=== PATIENT | male | born 1985 | race African-American/Black ===

== ENCOUNTER 2019-04-07 00:01 | Emergency (ER) | payer MEDICAID, OTHER ==
[~2019-04-07] VITALS: Ht 185.4 cm; Wt 95.0 kg
[2019-04-07] MEDS ORDERED: SODIUM CHLORIDE 0.9% 1,000 ML IV ONE (01:17)
[2019-04-07] MEDS ORDERED: ONDANSETRON HCL 4MG/2ML INJ IV STA (01:17)
[2019-04-07] MEDS ORDERED: LORAZEPAM 2MG/ML CPJ IV STA (01:17)
[2019-04-07 02:53] LABS: *AMPHETAMINES SCREEN URINE PRESUMTIVE POSITIVE (NEGATIVE); *BARBITURATES SCREEN URINE NEGATIVE (NEGATIVE); *BENZODIAZEPINES SCREEN URINE NEGATIVE (NEGATIVE); *COCAINE SCREEN URINE PRESUMTIVE POSITIVE (NEGATIVE)
[2019-04-07 02:54] LABS: CANNABINOID URINE SCREEN NEGATIVE (NEGATIVE); METHADONE URINE SCREEN NEGATIVE (NEGATIVE); OPIATES URINE SCREEN PRESUMTIVE POSITIVE (NEGATIVE); PHENCYCLIDINE URINE SCREEN NEGATIVE (NEGATIVE)
[2019-04-07 04:02] LABS: CHLORIDE 106 mEq/L (98-107)
[2019-04-07 04:03] LABS: BASOPHILS % 0.2 % (0.0-2.0); EOSINOPHILS % 0.1 % (0.0-5.0); HEMATOCRIT. 47.7 % (42.0-52.0); HEMOGLOBIN. 15.8 g/dL (14.0-18.0); LYMPHOCYTES % 8.1 % (20.0-50.0); MEAN CORPUSCULAR HEMOGLOBIN 31.1 pg (28.0-32.0); MEAN PLATELET VOLUME 7.7 fl (7.4-10.4); MONOCYTES % 10.9 % (2.0-8.0); NEUTROPHILS % 80.7 % (40.0-76.0); PLATELET 314 x1000/uL (130-400); RED BLOOD CELL COUNT 5.08 mill/uL (4.7-6.1); RED CELL DISTRIBUTION WIDTH 14.3 % (11.6-14.6)
[2019-04-07 04:09] LABS: ETHANOL BLOOD < 10 mg/dL
[2019-04-07 06:01] VITALS: BP 124/85
== END 2019-04-07 06:05 | disposition home or self-care (01) ==
LOC: ER 00:01
DX: F15.10 Other stimulant abuse, uncomplicated (principal); F14.10 Cocaine abuse, uncomplicated; F12.10 Cannabis abuse, uncomplicated; F10.10 Alcohol abuse, uncomplicated; F17.210 Nicotine dependence, cigarettes, uncomplicated; Y90.0 Blood alcohol level of less than 20 mg/100 ml
CPT/HCPCS: 36415; 80053; 80305; 80320; 85025; 93005; 96374; 96375; 99284; J2060; J2405; J7030; Z7610; G0480

== ENCOUNTER 2023-03-20 16:34 | Emergency (ER) | payer MEDICAID ==
[~2023-03-20] VITALS: Ht 182.9 cm; Wt 102.0 kg
[2023-03-20] MEDS ORDERED: DIPHENHYDRAMINE 50MG/ML VIAL IM STA (16:41)
[2023-03-20] MEDS ORDERED: HALOPERIDOL LACTATE 5MG/ML VIAL IM STA (16:41)
[2023-03-20] MEDS ORDERED: LORAZEPAM 2MG/ML CPJ IM ONE ×2 (16:45→17:30)
[2023-03-20 18:56] LABS: HEMATOCRIT. 42.8 % (42.0-52.0); HEMOGLOBIN. 14.2 g/dL (14.0-18.0); MEAN CORPUSCULAR HEMOGLOBIN 32.5 pg (28.0-32.0); MEAN CORPUSCULAR HGB CONC 33.1 g/dL (31.0-37.0); MEAN CORPUSCULAR VOLUME 98.4 fL (80.0-94.0); MEAN PLATELET VOLUME 7.7 fl (7.4-10.4); PLATELET 266 x1000/uL (130-400); RED BLOOD CELL COUNT 4.35 mill/uL (4.7-6.1); RED CELL DISTRIBUTION WIDTH 14.4 % (11.6-14.6); WHITE BLOOD COUNT 20.4 x1000/uL (4.5-11.0)
[2023-03-20 19:14] LABS: ALANINE AMINOTRANSFERASE 36 IU/L (10-49); ALBUMIN 4.3 g/dL (3.2-4.8); ASPARTATE AMINOTRANSFERASE 70 IU/L (<34); BILIRUBIN TOTAL 1.4 mg/dL (0.1-1.0); CALCIUM 10.1 mg/dL (8.7-10.4); CARBON DIOXIDE 23 mEq/L (21-32); CHLORIDE 99 mEq/L (98-107); CREATININE 1.8 mg/dL (0.6-1.3); GLUCOSE 74 mg/dL (70-105); POTASSIUM 3.2 mEq/L (3.5-5.1); SODIUM 137 mEq/L (136-145); UREA NITROGEN BLOOD 10 mg/dL (9-23)
[2023-03-20 19:15] VITALS: O2SAT 100
[2023-03-20 19:25] LABS: DIFFERENTIAL COMMENT 1
[2023-03-20 19:27] LABS: ETHANOL BLOOD < 10 mg/dL (<10)
[2023-03-20 19:44] VITALS: BP 112/84; PULSE 114; RESP 18; TEMP 98.3
[2023-03-20 21:18] LABS: PLATELET ESTIMATE NORMAL
[2023-03-20 21:19] LABS: ANISOCYTOSIS 1+
[2023-03-20] MEDS ORDERED: POTASSIUM CHLORIDE 20MEQ/PACKET PO NR (23:00)
== END 2023-03-21 05:11 | disposition home or self-care (01) ==
LOC: ER 16:34
DX: R45.1 Restlessness and agitation (principal)
CPT/HCPCS: 80053; 80320; 85025; 36415; 96372; 99291; J1200; J1630; J2060; Z7610 ×2; G0480

== ENCOUNTER 2023-06-16 01:45 | Emergency (ER) | payer MEDICAID ==
[~2023-06-16] VITALS: Ht 177.8 cm; Wt 78.0 kg
[2023-06-16 01:47] VITALS: BP 142/60; PULSE 120; RESP 18; O2SAT 94
== END 2023-06-16 02:31 | disposition left against medical advice (07) ==
LOC: ER 01:53
DX: F41.9 Anxiety disorder, unspecified (principal)
CPT/HCPCS: 99283